=== PATIENT | female | born 1955 | race Caucasian/White ===

== ENCOUNTER 2024-01-28 14:23 | Inpatient (IN) | payer OTHER ==
[2024-01-28] MEDS ORDERED: ACETAMINOPHEN INJECTION 100 ML ONE (16:28)
[2024-01-28] MEDS ORDERED: MAG HYDROX/AL HYDROX/SIMETH 30 ML UNIT-DOSE CUP ONE (16:28)
[2024-01-28] MEDS: ACETAMINOPHEN 1000 MG/100 ML BAG IVPB ONE (16:48)
[2024-01-28] MEDS: MAG HYDROX/AL HYDROX/SIMETH 30 ML UNIT-DOSE CUP PO ONE (16:48)
[2024-01-28] MEDS: SODIUM CHLORIDE 0.9% 500 ML INFUS.BAG IV ONE (16:49)
[2024-01-28 16:52] LABS: BASO % 0.5 % (0-2.0); EOS % 0.4 % (0-4.5); HEMATOCRIT 25.8 % (32.4-45.2); HEMOGLOBIN 8.7 GM/dL (10.7-15.3); LYMPH % 14.4 % (8-40); MCH 32.2 pg (25.7-33.7); MCHC 33.6 g/dl (32.0-36.0); MEAN CELL VOLUME 95.8 fl (80-96); MEAN PLT VOLUME 7.1 fl (7.5-11.1); MONO % 12.8 % (3.8-10.2); NEUT % 71.9 % (42.8-82.8); PLATELET COUNT 142 10^3/uL (134-434); RBC 2.69 M/mm3 (3.60-5.2); RDW 15.3 % (11.6-15.6); WHITE BLOOD COUNT 3.6 K/mm3 (4.0-10.0)
[2024-01-28 16:59] LABS: INR 1.13 (0.83-1.09)
[2024-01-28 17:02] LABS: ACTIVATED PTT 27.1 SECONDS (25.2-36.5)
[2024-01-28 18:17] LABS: CHLORIDE 108 mmol/L (98-107); SODIUM 145 mmol/L (136-145)
[2024-01-28 18:19] LABS: CALCIUM 8.5 mg/dL (8.5-10.1)
[2024-01-28 18:20] LABS: BLOOD UREA NITROGEN 17.2 mg/dL (7-18); CO2 29 mmol/L (21-32); GLUCOSE,RANDOM 132 mg/dL (74-106); MAGNESIUM 1.8 mg/dL (1.8-2.4)
[2024-01-28 18:23] LABS: CREATININE 0.7 mg/dL (0.55-1.3); PHOSPHOROUS 2.7 mg/dL (2.5-4.9); SGPT/ALT 69 U/L (13-61)
[2024-01-28 18:25] LABS: BILIRUBIN,TOTAL 0.8 mg/dL (0.2-1); SGOT/AST 49 U/L (15-37); TOT PROT 5.5 g/dl (6.4-8.2)
[2024-01-28 18:26] LABS: ALK PHOS 85 U/L (45-117)
[2024-01-28 18:27] LABS: ANION GAP 8 mmol/L (4-13); POTASSIUM 2.3 mmol/L (3.5-5.1)
[2024-01-28] MEDS ORDERED: POTASSIUM CHLORIDE TABS 20 MEQ TABLET.ER (FP) PO ONE (19:08)
[2024-01-28] MEDS ORDERED: KCL 10 MEQ IVPB 10 MEQ/100 ML INFUS.BAG IVPB ONE (19:08)
[2024-01-28] MEDS: KCL 10 MEQ IVPB 10 MEQ/100 ML INFUS.BAG IVPB SCH (19:26)
[2024-01-28] MEDS: POTASSIUM CHLORIDE TABS 20 MEQ TABLET.ER (FP) PO ONE (19:26)
[2024-01-28] MEDS: POLYETHYLENE GLYCOL (HEALTHYLAX) 3350 17 GM PACKET PO SCH (21:45)
[2024-01-28] MEDS: ACETAMINOPHEN 1000 MG/100 ML BAG IVPB PRN (21:57)
[2024-01-28 23:08] VITALS: BMI 22.8
[2024-01-29 02:55] LABS: CHLORIDE 112 mmol/L (98-107); SODIUM 146 mmol/L (136-145)
[2024-01-29 02:57] LABS: BLOOD UREA NITROGEN 13.3 mg/dL (7-18); CALCIUM 8.2 mg/dL (8.5-10.1); CO2 29 mmol/L (21-32); GLUCOSE,RANDOM 102 mg/dL (74-106)
[2024-01-29 03:01] LABS: CREATININE 0.6 mg/dL (0.55-1.3)
[2024-01-29 03:07] LABS: ANION GAP 6 mmol/L (4-13); POTASSIUM 2.7 mmol/L (3.5-5.1)
[2024-01-29] MEDS: KCL 10 MEQ IVPB 10 MEQ/100 ML INFUS.BAG IVPB SCH ×2 (03:52→12:19)
[2024-01-29 08:44] LABS: BASO % 0.5 % (0-2.0); EOS % 0.9 % (0-4.5); HEMATOCRIT 22.8 % (32.4-45.2); HEMOGLOBIN 7.7 GM/dL (10.7-15.3); LYMPH % 20.7 % (8-40); MCH 32.4 pg (25.7-33.7); MCHC 33.9 g/dl (32.0-36.0); MEAN CELL VOLUME 95.5 fl (80-96); MONO % 11.3 % (3.8-10.2); NEUT % 66.6 % (42.8-82.8); PLATELET COUNT 124 10^3/uL (134-434); RBC 2.39 M/mm3 (3.60-5.2); RDW 15.3 % (11.6-15.6); WHITE BLOOD COUNT 2.8 K/mm3 (4.0-10.0)
[2024-01-29 09:19] LABS: CHLORIDE 119 mmol/L (98-107); SODIUM 150 mmol/L (136-145)
[2024-01-29 09:21] LABS: ALBUMIN 2.6 g/dl (3.4-5.0); CO2 29 mmol/L (21-32)
[2024-01-29 09:22] LABS: BLOOD UREA NITROGEN 11.4 mg/dL (7-18); GLUCOSE,RANDOM 85 mg/dL (74-106); MAGNESIUM 1.9 mg/dL (1.8-2.4)
[2024-01-29 09:25] LABS: ANION GAP 2 mmol/L (4-13); CREATININE 0.5 mg/dL (0.55-1.3); POTASSIUM 2.9 mmol/L (3.5-5.1); SGOT/AST 42 U/L (15-37); SGPT/ALT 58 U/L (13-61)
[2024-01-29 09:26] LABS: BILIRUBIN,TOTAL 0.6 mg/dL (0.2-1); TOT PROT 4.6 g/dl (6.4-8.2)
[2024-01-29 09:27] LABS: ALK PHOS 73 U/L (45-117)
[2024-01-29 10:05] LABS: IRON SERUM 34 ug/dL (50-175)
[2024-01-29 10:06] LABS: TOTAL IRON BINDING CAPACITY 332 ug/dL (250-450)
[2024-01-29 10:15] LABS: EPI CELLS >36 /uL (0-25.1); HYALINE CASTS 1 /uL (0-3.1); URINE APPEARANCE CLEAR; URINE BACTERIA 119 /uL (0-1359); URINE BILIRUBIN NEGATIVE (NEGATIVE); URINE COLOR YELLOW; URINE GLUCOSE (UA) NEGATIVE (NEGATIVE); URINE KETONE TRACE (NEGATIVE); URINE LEUK ESTERASE TRACE (NEGATIVE); URINE NITRITE NEGATIVE (NEGATIVE); URINE PROTEIN TRACE (NEGATIVE); URINE RBC 867 /uL (0-23.9); URINE WBC 45 /uL (0-25.8)
[2024-01-29] MEDS: metoPROLOL SUCCINATE 25 MG TAB.SR.24H (FP) PO SCH (12:18)
[2024-01-29] MEDS: diazePAM 2 MG TABLET PO ONE (16:55)
[2024-01-29 20:29] LABS: CHLORIDE 106 mmol/L (98-107); SODIUM 139 mmol/L (136-145)
[2024-01-29 20:31] LABS: BLOOD UREA NITROGEN 11.6 mg/dL (7-18); CALCIUM 8.5 mg/dL (8.5-10.1); CO2 27 mmol/L (21-32); GLUCOSE,RANDOM 100 mg/dL (74-106)
[2024-01-29 20:35] LABS: CREATININE 0.6 mg/dL (0.55-1.3)
[2024-01-29 20:42] LABS: ANION GAP 6 mmol/L (4-13); POTASSIUM 2.9 mmol/L (3.5-5.1)
[2024-01-29] MEDS: SACUBITRIL/VALSARTAN 24 MG-26 MG TABLET PO SCH (21:26)
[2024-01-30 07:12] LABS: BASO % 0.6 % (0-2.0); EOS % 1.4 % (0-4.5); HEMATOCRIT 25.4 % (32.4-45.2); HEMOGLOBIN 8.7 GM/dL (10.7-15.3); MCH 32.6 pg (25.7-33.7); MCHC 34.4 g/dl (32.0-36.0); MEAN CELL VOLUME 94.9 fl (80-96); MEAN PLT VOLUME 7.7 fl (7.5-11.1); MONO % 10.6 % (3.8-10.2); NEUT % 71.4 % (42.8-82.8); PLATELET COUNT 128 10^3/uL (134-434); RBC 2.67 M/mm3 (3.60-5.2); RDW 15.3 % (11.6-15.6); WHITE BLOOD COUNT 3.8 K/mm3 (4.0-10.0)
[2024-01-30 07:22] LABS: CHLORIDE 108 mmol/L (98-107); SODIUM 142 mmol/L (136-145)
[2024-01-30 07:30] LABS: ALBUMIN 2.6 g/dl (3.4-5.0); CALCIUM 8.5 mg/dL (8.5-10.1)
[2024-01-30 07:31] LABS: BLOOD UREA NITROGEN 9.2 mg/dL (7-18); CO2 27 mmol/L (21-32); GLUCOSE,RANDOM 88 mg/dL (74-106)
[2024-01-30 07:34] LABS: CREATININE 0.5 mg/dL (0.55-1.3); SGOT/AST 47 U/L (15-37); SGPT/ALT 61 U/L (13-61)
[2024-01-30 07:36] LABS: ANION GAP 7 mmol/L (4-13); BILIRUBIN,TOTAL 0.9 mg/dL (0.2-1); POTASSIUM 2.8 mmol/L (3.5-5.1); TOT PROT 4.8 g/dl (6.4-8.2)
[2024-01-30 07:37] LABS: ALK PHOS 82 U/L (45-117)
[2024-01-30] MEDS: KCL 10 MEQ IVPB 10 MEQ/100 ML INFUS.BAG IVPB SCH (09:40)
[2024-01-30] MEDS: ROSUVASTATIN CA 20 MG TABLET PO SCH (10:46)
[2024-01-30] MEDS: POTASSIUM CHLORIDE ORAL LIQUID 20 MEQ/15 ML PO SCH (10:46)
[2024-01-30] MEDS: ASPIRIN 81 MG CHEWABLE TABLETS PO SCH (10:46)
[2024-01-30] MEDS: SPIRONOLACTONE 25 MG TABLET PO ONE (16:03)
[2024-01-30] MEDS: POTASSIUM CHLORIDE ORAL LIQUID 20 MEQ/15 ML PO ONE (17:14)
[2024-01-30] MEDS: IRON SUCROSE INJECTION 100 MG in SODIUM CHLORIDE 95 ML IVPB ONE (17:14)
[2024-01-30] MEDS: ENOXAPARIN NA (PORCINE) 60 MG/0.6 ML DISP.SYRIN SQ SCH (21:10)
[2024-01-31 05:10] VITALS: RESP 16
[2024-01-31 07:11] LABS: HEMATOCRIT 27.5 % (32.4-45.2); HEMOGLOBIN 9.3 GM/dL (10.7-15.3); MCH 32.4 pg (25.7-33.7); MCHC 33.6 g/dl (32.0-36.0); MEAN CELL VOLUME 96.3 fl (80-96); MEAN PLT VOLUME 7.6 fl (7.5-11.1); PLATELET COUNT 144 10^3/uL (134-434); RBC 2.86 M/mm3 (3.60-5.2); RDW 16.2 % (11.6-15.6); WHITE BLOOD COUNT 3.9 K/mm3 (4.0-10.0)
[2024-01-31 07:28] LABS: POTASSIUM 4.4 mmol/L (3.5-5.1)
[2024-01-31 07:31] LABS: ALBUMIN 2.7 g/dl (3.4-5.0)
[2024-01-31 07:33] LABS: BLOOD UREA NITROGEN 9.1 mg/dL (7-18); CALCIUM 8.7 mg/dL (8.5-10.1)
[2024-01-31 07:34] LABS: CREATININE 0.6 mg/dL (0.55-1.3)
[2024-01-31 07:36] LABS: BILIRUBIN,TOTAL 0.6 mg/dL (0.2-1); TOT PROT 4.9 g/dl (6.4-8.2)
[2024-01-31 12:34] VITALS: BP 109/59; PULSE 86; TEMP 97.9
[2024-02-05] MEDS ORDERED: CAPECITABINE 500 MG TABLET PO SCH (10:00)
== END 2024-01-31 13:12 | disposition home or self-care (01) | DRG 392 ==
LOC: JER 14:23 → JERBED 18:30 → J4W 20:09 → OBSVTOIN 01-30 15:20
PROVIDERS: ADMIT Internal Medicine; ATTEND Family Medicine
DX: K59.09 Other constipation (principal); C25.9 Malignant neoplasm of pancreas, unspecified; I82.890 Acute embolism and thrombosis of other specified veins; I25.10 Atherosclerotic heart disease of native coronary artery without angina pectoris; I10 Essential (primary) hypertension; D64.9 Anemia, unspecified; E87.6 Hypokalemia; E86.0 Dehydration
CPT/HCPCS: 36415; 36430; 71045-TC-FY; 74177-TC; 74183-TC; 80048; 80053; 81003; 82728; 83540; 83550; 83735; 84100; 85025; 85027; 85610; 85730; 86850; 86900; 86901; 86922; 87086; 93005; 93010; 99285-25; G0378; J0131; J1756; P9038; P9058; Q9967